=== PATIENT | male | born 1975 | race Caucasian/White ===

== ENCOUNTER 2018-08-20 15:39 | Emergency (ER) | payer BC ==
[~2018-08-20] VITALS: Ht 170.2 cm; Wt 95.5 kg
[2018-08-20 15:44] VITALS: Ht 170.2 cm; Wt 95.5 kg
[2018-08-20] MEDS ORDERED: KETOROLAC 15 MG INJ IM STA (15:46)
[2018-08-20] MEDS ORDERED: DIAZEPAM 5 MG/ML SYG IM ONE (16:00)
--- NOTE | 2018-08-20 16:52 | ERD ---
ER Documentation Chief Complaint Chief Complaint BENT OVER TO PICK SOMETHING UP AND FELT A POP. SEVERE BACK PAIN HPI This is a 43-year-old male with a past medical history of low back pain who is presenting with exacerbation of back pain. The patient was reportedly attempting to lift a heavy bag of glass recycling. He used his back instead of his legs. He bent over to pick it up, and when he lifted the bag, he reportedly felt a pop. The patient endorses right lower back pain, exacerbated by movement of the right leg. The patient's symptoms are alleviated by rest, but exacerbated by movement. The patient's pain started immediately after lifting the bag. He does not endorse any dysuria or hematuria or urgency or frequency. He does not have a history of kidney stones. He has no weakness or numbness or tingling to the lower extremities. He had no incontinence or retention of urine or stool. The patient denies feeling sick recently. The patient denies fever or chills. The patient has had no headache or vision changes. The patient does not endorse neck or back pain. The patient denies lightheadedness or dizziness. The patient has had no chest pain or trouble breathing. The patient denies nausea or vomiting. The patient denies abdominal pain. The patient denies changes to bowel movements or urination. ROS All systems reviewed and are negative except as per history of present illness. PMhx/Soc Medical and Surgical Hx: pt denies Medical Hx, pt denies Surgical Hx History of Surgery: No Anesthesia Reaction: No Hx Neurological Disorder: No Hx Respiratory Disorders: No Hx Cardiac Disorders: No Hx Psychiatric Problems: No Hx Miscellaneous Medical Probl: No Hx Alcohol Use: No Hx Substance Use: No Hx Tobacco Use: No Smoking Status: Never smoker FmHx Family History: No diabetes Physical Exam Vitals Vital Signs Date Temp Pulse Resp B/P (MAP) Pulse Ox O2 O2 Flow FiO2 Time Delivery Rate 08/20/18 98.7 85 22 123/71 98 Room Air 16:05 (88) 08/20/18 98.7 98 22 133/89 98 15:44 (104) Physical Exam Const: No apparent distress, well-developed, well-nourished Head: Normocephalic, Atraumatic Eyes: Normal Conjunctiva. Extraocular movements intact. Pupils equal, round and reactive to light ENT: Normal External Ears, Nose and Mouth. Neck: Full range of motion. No meningismus. Resp: Clear to auscultation bilaterally, No wheezes, rales or rhonchi Cardio: Regular rate and rhythm. No murmurs, rubs or gallops Abd: Soft, non tender, non distended. Normal bowel sounds Skin: No petechiae or rashes Back: No midline tenderness. Right lumbar back tenderness to palpation. No CVA tenderness Ext: No cyanosis, or edema. Positive right straight leg raise at 15 degrees. Neur: Awake and alert, oriented 4. Cranial nerves intact. No facial droop. Normal strength, sensation and coordination. Psych: Normal Mood and Affect Results 24 hrs Current Medications Medications Dose Sig/Beatrice Start Time Status Last (Trade) Ordered Route PRN Stop Time Admin Dose Reason Admin Ketorolac 15 mg ONCE STAT 08/20/18 DC 08/20/18 Tromethamine IM 15:46 15:57 (Toradol) 08/20/18 15:47 Diazepam 5 mg ONCE ONCE 08/20/18 DC 08/20/18 (Valium) IM 16:00 15:57 08/20/18 16:01 Procedures/MDM MDM The patient's presentation warrants further investigation. Previous medical maria l rds, if available, were reviewed. The patient presents with low back pain. I have high suspicion for a musculoskeletal etiology. A muscle spasm versus strain versus herniated disc are certainly possibilities. I am concerned about the possibility of sciatic back pain as well. I do not see any evidence concerning for cauda equina. The patient's symptoms are not consistent with nephrolithiasis. The patient does not have kidney disease and I have low suspicion for flank pain caused by a renal pathology. The patient does not have a palpable pulsatile mass in the abdomen. I have low suspicion for AAA or rupture or dissection. TREATMENT/DISPOSITION The patient was treated with Toradol, Valium, Solu-Medrol and fentanyl with improvement of his pain. Upon reevaluation of the patient, symptoms have improved. No emergent diagnoses were identified. At this time, I feel that the patient stable for discharge. The patient was instructed to follow-up with a primary care physician in 1-3 days. The patient will be given strict precautions with which to return to the emergency department. Prescriptions: Prednisone, Flexeril, ibuprofen, oxycodone. The [employer] database was accessed and did not report any previous narcotic prescriptions. The patient does not have a history of narcotic abuse. The patient was only provided five 5 mg tablets of oxycodone to be used as needed for severe pain. He does not require a Narcan prescription. The patient's blood pressure was elevated at greater than 120/80 while in the emergency department. The patient was otherwise stable with no evidence of hypertensive urgency or emergency. The patient does not require admission for blood pressure control. I have discussed with the patient the risks of hypertension. I have instructed the patient to return to the ER for any new or worsening symptoms including chest pain, shortness of breath, headache, blurred vision, confusion, nausea, vomiting or LOC. I have advised the patient to follow up with the primary care physician for outpatient monitoring and treatment for hypertension in 1-3 days. Disclaimer: Inadvertent spelling and grammatical errors are likely due to [employer]/dictation software use and do not reflect on the overall quality of patient care. Note that the electronic time recorded on this note does not necessarily reflect the actual time of the patient encounter. Departure Diagnosis: Primary Impression: Low back pain Chronicity: acute Back pain laterality: right Sciatica presence: with sciatica Sciatica laterality: sciatica of right side Qualified Codes: M54.41 - Lumbago with sciatica, right side Condition: ROBERTO Mckeon MD Aug 20, 2018 16:51
[2018-08-20] MEDS ORDERED: PRED20TA PO (16:53)
[2018-08-20] MEDS ORDERED: IBUP-1542 PO (16:53)
[2018-08-20] MEDS ORDERED: CYCL10TA7 PO (16:53)
[2018-08-20] MEDS ORDERED: OXYC5CAP17 PO (16:53)
[2018-08-20] MEDS ORDERED: METHYLPREDNISOLONE 125 MG INJ IV ONE (17:00)
[2018-08-20] MEDS ORDERED: FENTAnyl 50 MCG/ML VIAL IV ONE (17:00)
[2018-08-20 17:55] VITALS: BP 119/72; PULSE 78; RESP 20
== END 2018-08-20 17:55 | disposition home or self-care (01) ==
LOC: E/R 15:39
DX: M54.41 Lumbago with sciatica, right side (principal)
CPT/HCPCS: 96372; 96374; 96375; 99284; J1885; J2930; J3010; J3360